=== PATIENT | female | born 1960 | race Caucasian/White ===

== ENCOUNTER 2018-03-19 08:30 | Outpatient (CLI) | payer OTHER | END 2018-03-19 08:37 | disposition home or self-care (01) | LOC: SONOGRAMA 08:30 | DX: E04.1 Nontoxic single thyroid nodule (principal) ==

== ENCOUNTER 2019-08-21 09:13 | Outpatient (CLI) | payer OTHER | END 2019-08-21 09:25 | disposition home or self-care (01) | LOC: SONOGRAMA 09:13 | DX: R59.0 Localized enlarged lymph nodes (principal) ==

== ENCOUNTER 2021-08-01 08:32 | Outpatient (CLI) | payer OTHER | END 2021-08-01 08:35 | disposition home or self-care (01) | LOC: SONOGRAMA 08:32 | PROVIDERS: ATTEND Pathology Anatomic Pathology & Clinical Pathology | DX: E04.2 Nontoxic multinodular goiter (principal) ==

== ENCOUNTER 2025-01-26 08:41 | Outpatient (CLI) | payer OTHER | END 2025-01-26 08:48 | disposition home or self-care (01) | LOC: SONOGRAMA 08:41 | PROVIDERS: ATTEND Pathology Anatomic Pathology | DX: D34 Benign neoplasm of thyroid gland (principal); E07.89 Other specified disorders of thyroid; E04.2 Nontoxic multinodular goiter ==